=== PATIENT | female | born 1935 | race Caucasian/White ===

== ENCOUNTER → 2016-11-29 | Outpatient (CLI) | payer OTHER, MEDICARE ==
[~2016-11-29] MED LIST: ACETAMINOPHEN325 M1 PO; ADULT LOW DOSE81 MG PO; ADVIL200 M3 PO; ALDACTONE25 MG PO; AMLODIPINE BESY10 MG PO; ANTIVERT25 MG PO; ASPIRIN EC81 M1 PO; ATENOLOL 25 MG25 M1 PO; AZITHROMYCIN 2250 MG PO; AZOR 10-40 MG1 EACH PO; AZOR 5-40 MG T1 EACH PO; BACTRIM DS TAB1 EACH PO; BENTYL10 MG PO; BYSTOLIC 5 MG5 M1 PO; BYSTOLIC10 MG PO; CALCIUM; CALCIUM 600 +1 EAC1 PO; CALCIUM 600 +1 EAC5 PO; CHERACOL COUGH120 ML PO; CIPROFLOXACIN500 M1 PO; ESTRACE VAG; ESTRACE1 MG; EVISTA; FISHOIL PO; FLECAINIDE ACET50 M1 PO; FLECAINIDE ACET50 M2 PO; FLEXERIL PO; FOSAMAX 70 MG T70 M1 PO; GAVISCON TABLE1 EACH PO; HYDROCHLOROTHIA25 M1 PO; HYDROCHLOROTHIA25 M2 PO; HYDROCODON-ACE1 EAC7 PO; IRBESARTAN300 MG PO; KEFLEX250 MG PO; KLOR-CON 1010 MEQ PO; KRILL OIL500 MG PO; LISINOPRIL40 MG PO; MAG-OX 400 TAB400 M1 PO; METOCLOPRAMIDE 55 M1 PO; MUCINEX TA600 MG/TA2 PO; NAPROSYN500 MG PO; NORCO 5-325 TA1 EACH PO; NORVASC10 MG PO; POTASSIUM20 PO; PRADAXA150 MG PO; PREDNISONE 10 M10 M1 PO; PREDNISONE 20 M20 MG PO; PROAIR HFA8.5 GM IH; RANITIDINE 150150 MG PO; RECLAST 55 MG/1002 IVPB; SIMVASTATIN20 MG PO; SIMVASTATIN40 MG PO; SYMBICORT160 MCG/4. INH; TEKTURNA HCT 11 EACH PO; TESSALON PERLE100 MG PO; TOPROL XL50 MG PO; TRAMADOL 50 MG50 MG PO; TUMS PO; ULTRAM 50MG TAB50 MG PO; VAGIFEM10 MCG VG; VITAMIN D 5050000 I1 PO; VITAMINC500 PO; XANAX 0.25 MG0.25 MG PO; ZOCOR 20 MG TAB20 M1 PO; ZOCOR40 MG PO; ZOFRAN4 MG PO
== END ==
LOC: RAD 03:59
DX: Z12.31 Encounter for screening mammogram for malignant neoplasm of breast (principal)

== ENCOUNTER 2016-12-18 11:20 | Emergency (ER) | payer OTHER, MEDICARE ==
[~2016-12-18] VITALS: Ht 160 cm; Wt 81.7 kg
[2016-12-18 12:01] LABS: URINE BILIRUBIN NEGATIVE (Negative); URINE BLOOD 2+ (Negative); URINE COLOR YELLOW; URINE GLUCOSE-RANDOM* NEGATIVE (Negative); URINE KETONES NEGATIVE (Negative); URINE NITRITE NEGATIVE (Negative); URINE PROTEIN (DIPSTICK) NEGATIVE (Negative); URINE UROBILINOGEN 0.2 E.U./dl (0.2-1.0)
[2016-12-18 12:10] LABS: CASTS None Seen /LPF (None Seen); CRYSTALS None Seen /LPF (None Seen); SQUAMOUS >10 Many /LPF (0-3)
[2016-12-18 12:11] LABS: BACTERIA None Seen /HPF (None Seen); URINE RBC 3-10 Few /HPF (0-2); URINE WBC None Seen /HPF (0-5)
[2016-12-18 12:16] LABS: ABSOLUTE NEUTROPHILS 4.2 thou/uL (1.4-8.2); BASOPHILS 1.2 % (0.0-2.0); EOSINOPHILS 1.4 % (0.0-3.0); HEMATOCRIT 38.1 % (37.0-47.0); HEMOGLOBIN 13.6 gm/dL (12.0-15.0); LYMPHOCYTES 12.2 % (24.0-44.0); MCHC 35.8 g/dL (28.0-37.0); MCV 92.2 fL (80.0-100.0); MONOCYTES 11.3 % (1.0-8.0); PLATELET COUNT 214 thou/uL (150-400); POLYS 73.9 % (36.0-66.0); RBC 4.13 mil/uL (4.20-5.00); RDW 13.4 % (10.5-14.5); WBC 5.7 thou/uL (4.0-11.0)
[2016-12-18 12:20] LABS: MANUAL DIFF NO
[2016-12-18 12:28] LABS: CREATININE 0.7 mg/dL (0.6-1.0); POTASSIUM 3.6 mmol/L (3.5-5.1)
[2016-12-18 12:32] LABS: ALBUMIN 3.7 g/dL (3.4-5.0); DIRECT BILIRUBIN 0.2 mg/dL (<0.1-0.3); TOTAL BILIRUBIN 0.8 mg/dL (<0.1-1.0); TOTAL PROTEIN 6.8 g/dL (6.4-8.2)
[2016-12-18] MEDS ORDERED: BENTYL 10 MG CA10 M1 PO (14:08)
== END 2016-12-18 14:09 | disposition home or self-care (01) ==
LOC: ER 11:20
PROVIDERS: Emergency Medicine
DX: R14.0 Abdominal distension (gaseous) (principal); I48.91 Unspecified atrial fibrillation; K58.9 Irritable bowel syndrome, unspecified; Z90.710 Acquired absence of both cervix and uterus; Z95.0 Presence of cardiac pacemaker; Z88.5 Allergy status to narcotic agent; Z91.040 Latex allergy status; Z88.0 Allergy status to penicillin; Z87.891 Personal history of nicotine dependence

== ENCOUNTER 2017-11-28 22:01 | Emergency (ER) | payer OTHER, MEDICARE ==
[~2017-11-28] VITALS: Ht 157.5 cm; Wt 81.7 kg
[2017-11-28 23:38] LABS: ABSOLUTE NEUTROPHILS 8.9 thou/uL (1.4-8.2); BASOPHILS 0.3 % (0.0-2.0); EOSINOPHILS 0.6 % (0.0-3.0); HEMATOCRIT 39.4 % (37.0-47.0); HEMOGLOBIN 14.1 gm/dL (12.0-15.0); LYMPHOCYTES 6.2 % (24.0-44.0); MCH 32.8 pg (26.0-34.0); MCHC 35.7 g/dL (28.0-37.0); MONOCYTES 5.2 % (1.0-8.0); POLYS 87.7 % (36.0-66.0); RBC 4.29 mil/uL (4.20-5.00); RDW 13.4 % (10.5-14.5); WBC 11.2 thou/uL (4.0-11.0)
[2017-11-28 23:46] LABS: CALCIUM 9.6 mg/dL (8.5-10.1); CREATININE 0.7 mg/dL (0.6-1.0); POTASSIUM 3.5 mmol/L (3.5-5.1)
[2017-11-28 23:54] LABS: ALBUMIN 3.8 g/dL (3.4-5.0); DIRECT BILIRUBIN 0.2 mg/dL (<0.1-0.3); TOTAL BILIRUBIN 1.2 mg/dL (<0.1-1.0); TOTAL PROTEIN 7.3 g/dL (6.4-8.2)
[2017-11-29 00:15] LABS: PLATELET COUNT 239 thou/uL (150-400)
== END 2017-11-29 02:42 | disposition home or self-care (01) ==
LOC: ER 22:01
PROVIDERS: Emergency Medicine
DX: K31.1 Adult hypertrophic pyloric stenosis (principal); K44.9 Diaphragmatic hernia without obstruction or gangrene; R19.7 Diarrhea, unspecified; I48.91 Unspecified atrial fibrillation; Z90.710 Acquired absence of both cervix and uterus; Z88.5 Allergy status to narcotic agent; Z91.040 Latex allergy status; Z88.0 Allergy status to penicillin; Z87.891 Personal history of nicotine dependence

== ENCOUNTER → 2017-11-28 | Outpatient (CLI) | payer OTHER, MEDICARE ==
[~2017-11-28] MED LIST changes: +BENTYL 10 MG CA10 M1 PO
--- NOTE | ~2017-11-28 | PATH ---
[facility] [address] [place] [address] PATHOLOGY RPT PROCEDURE Name: ISELABORA SAWYER Room #: REG MERLYN Colunga.#: [id number] Admission: 11/28/17 Date of : 39 Discharge: Report #: [id number] Path Case #: [id number] LCA Accession Number: [id number] . 01 Material submitted: . PART A: BIOPSY, GASTRITIS PART B: BIOPSY, RANDOM COLON . 01 Clinical history: . GERD, history of polyps, severe esophagitis, hiatal hernia, diverticulosis. . 02 Diagnosis: A. Gastric mucosa, gastritis, endoscopic biopsy: - Mild reactive gastropathy. - Negative for intestinal metaplasia or atrophy. - Negative for Helicobacter pylori (properly controlled immunohistochemical stain performed). . B. Large intestine mucosa, random colon, endoscopic biopsy: - No significant diagnostic abnormalities identified. [facility] . 02 Comment: Sections of colon biopsy tissues show crypts at regular intervals and no increase in cellularity of lamina propria. There are no granulomas. The collagen layer underneath the epithelium is not thickened. There is no distortion in crypt architecture as well. There is no evidence of dysplasia. (IUV:pit; 11/29/2017) . 02 Electronically signed: . Dayana Locke MD, Pathologist NPI- [id number] . 01 Gross description: . A. Received in formalin labeled "Bora Weiss, biopsy gastritis rule out H. pylori" are multiple pink-berger soft tissue fragments which measure in aggregate 1.0 x 0.5 x 0.2 cm. The specimen is submitted in cassette A1. . B. Received in formalin labeled "Bora Weiss, biopsy random colon rule out colitis" is a 1.5 x 0.6 x 0.2 cm aggregate of berger-brown soft tissue fragments. The specimen is submitted in cassette B1. ([facility]; 11/28/2017) SY/[facility] . 02 CPT . [id number], [id number], [id number] [place] [address] PATHOLOGY RPT PROCEDURE Name: BORA WEISS Room #: REG Jenn Aquino#: [id number] Admission: 11/28/17 Date of : 37 Discharge: Report #: [id number] Path Case #: [id number] Performed at: 01 [facility] Judith Kovacs [address] [facility] [address], [place] [id number] MD Tomas Meng MD Phone: [phone] Performed at: [address] [id number] MD Dayana Locke MD Phone: [phone]
--- NOTE | ~2017-11-28 | P ---
[facility] [place] [address] PROCEDURE REPORT Name: BORA WEISS Room #: REG [facility]#: [id number] Admission: 11/28/17 Attend Phys: García Jacome MD Discharge: Date of : 37 Report #: [id number] THIS REPORT FOR: //name// CC: Sharda Jacome BRIEF HISTORY: The patient is an 82-year-old woman who has a history of reflux disease, which she has managed with an H2 ish. However, she notes that symptoms have been worsening recently, especially after the colonoscopy prep. PREOPERATIVE DIAGNOSIS: Worsening reflux symptoms on therapy. POSTOPERATIVE DIAGNOSES: 1. Severe erosive esophagitis with oozing of bright red blood. 2. Abnormal stomach, suspected large hiatus hernia. 3. Duodenal ulcers. MEDICATIONS: Deep sedation with propofol per Anesthesia. SPECIMEN: Biopsies of gastritis. ESTIMATED BLOOD LOSS: 3 mL. PROCEDURE: EGD with biopsy.. FINDINGS: Prior to propofol sedation, procedure of upper endoscopy was discussed with the patient as well as potential risks and its complications. She indicates she understands and desires to proceed. DESCRIPTION OF PROCEDURE: With the patient in left lateral decubitus position, the Olympus video endoscope was inserted in the cervical esophagus under direct vision. Immediately upon entering the esophagus, there was noted to be fluid in the esophagus. It had a brownish appearance, suggesting blood. We vigorously aspirated the esophagus and very carefully advanced the scope distally. The esophagus was noted to be a tortuous, in particular the distal esophagus. I could never clearly see the squamocolumnar junction, but is estimated to be at about 30 cm. I very carefully advanced the scope into the gastric lumen. There was bloody fluid and this was aspirated away. Vigorous bleeding was not seen. The distal aspect of the stomach was very difficult to visualize. I am suspicious she has a very large hiatus hernia. That being the case, she may have at least half of her stomach in her chest. We made multiple attempts to advance the scope in the distal stomach, but each time the scope curled around in the proximal stomach. We finally were able to advance the scope into the distal stomach. We were able to clearly see the antrum and the pylorus. The mucosa was intact. No ulcers were seen. Pylorus was normal. Exam of duodenal bulb revealed superficial ulceration in the distal bulb and second portion of [facility] [address] [place] [address] PROCEDURE REPORT Name: BORA WEISS [id number] Admission: 11/28/17 Attend Phys: García Jacome MD Discharge: Date of : 37 Report #: [id number] duodenum. Active bleeding was not seen. No masses were seen. At that point, the scope was slowly withdrawn and careful circumferential views confirmed the above finding. Biopsies obtained of the antrum and body of the stomach to evaluate for H. pylori. Upon slow withdrawal of the scope, we aspirated away as much fluid as possible. CONDITION OF THE PATIENT UPON DISCHARGE: Following procedure, the patient drowsy and she will be prepared for colonoscopy. INSTRUCTIONS TO THE PATIENT AND FAMILY AT THE TIME OF DISCHARGE: The patient reports that she has had recent worsening of her reflux symptoms. I am suspicious she has a very large hiatus hernia and my estimate at least half the stomach is in her chest. Another consideration would be a gastric volvulus and if that is the case, it is chronic without complaints of abdominal pain. We will obtain an upper GI series for further evaluation. I suspect she is likely to benefit from surgery. In the meantime, discussed the antireflux measures, elevation of the head of the bed, also placed her on twice-daily omeprazole. At this time, we will proceed with colonoscopy. By: 0847 0920 García Jacome MD /alysa
--- NOTE | ~2017-11-28 | P ---
[facility] [place] [address] PROCEDURE REPORT Name: BORA WEISS Room #: [facility] [id number] Admission: 11/28/17 Attend Phys: García Jacome MD Discharge: Date of : 37 Report #: [id number] THIS REPORT FOR: //name// CC: Sharda Jacome BRIEF HISTORY: This is an 82-year-old woman who has had a recent change in bowel habits. She also has a history of colon polyps. PREOPERATIVE DIAGNOSES: Change in bowel habits with diarrhea. POSTOPERATIVE DIAGNOSIS: Moderate sigmoid diverticulosis coli. MEDICATIONS: Deep sedation with propofol per anesthesia. SPECIMEN: Random biopsies of the colon, rule out colitis. ESTIMATED BLOOD LOSS: 3 mL. PROCEDURE: Colonoscopy to cecum and terminal ileum with biopsy. FINDINGS: Prior to propofol sedation, the procedure of colonoscopy was discussed with the patient as well as potential risks, benefits, and complications. She indicates she understands and desires to proceed. With the patient in left lateral decubitus position, digital examination was completed, which revealed no abnormalities. Subsequently, the Olympus video colonoscope was introduced in the rectum and advanced under direct vision to the cecum. Done with minimal difficulty. The cecum was identified by the ileocecal valve and the appendiceal orifice. I was able to visualize the distal segment of terminal ileum, which was inspected and noted to be unremarkable. At that point, scope was slowly withdrawn and careful circumferential views were obtained. There were some limitations of the prep, but with irrigation and suctioning, we are overall able to obtain a reasonably good prep. As we withdrew the scope, the mucosa was within normal limits, normal vascular pattern, normal light reflex. No neoplastic lesions were seen during this examination. The mucosa was within normal limits throughout. As we withdrew the scope, the only abnormality noted was moderately severe diverticular disease without endoscopic evidence of diverticulitis in the sigmoid colon. Also, due to her complaints of diarrhea, multiple random biopsies were obtained of the colonic mucosa to evaluate for microscopic colitis. The scope was withdrawn in the rectum. Upon retroflexion, no abnormalities were seen. Scope was withdrawn. The patient tolerated the procedure well. CONDITION OF THE PATIENT UPON DISCHARGE: Following procedure, the patient drowsy and arousable, she will be discharged to home when fully ambulatory. [address] [address] PROCEDURE REPORT Name: BORA WEISS [facility] #: [facility] [id number] Admission: 11/28/17 Attend Phys: García Jacome MD Discharge: Date of : 37 Report #: [id number] INSTRUCTIONS TO THE PATIENT AND FAMILY AT THE TIME OF DISCHARGE: With regards to her history of colon polyps, no neoplastic lesions were seen today. At this point in life, she is not likely to benefit from continued routine surveillance of her colon. However, if she develops specific symptoms, colonoscopy could be carried out for those indications. As for her diarrhea, we will follow up on biopsies obtained today. At this point in time, she reports that Kaopectate seems to help and that would be reasonable. She has had a previous cholecystectomy and treatment for bile salt diarrhea with may be a consideration, especially the Kaopectate does not work. She will follow up with her primary care provider, Sharda Campos, return to see me as needed. Please also see upper endoscopy report for additional details. Last colonoscopy was about 9 years ago. Withdrawal time from cecum was minutes 49 seconds. By: 0919 1008 García Jacome MD /nt
[2017-11-28 09:58] LABS: HEMATOCRIT 37.7 % (37.0-47.0); HEMOGLOBIN 13.5 gm/dL (12.0-15.0); MCH 33.4 pg (26.0-34.0); MCHC 35.7 g/dL (28.0-37.0); MCV 93.3 fL (80.0-100.0); RBC 4.04 mil/uL (4.20-5.00); RDW 13.5 % (10.5-14.5); WBC 7.8 thou/uL (4.0-11.0)
== END | disposition home or self-care (01) ==
LOC: GI 06:42
PROVIDERS: Specialist
DX: K57.30 Diverticulosis of large intestine without perforation or abscess without bleeding (principal); K31.9 Disease of stomach and duodenum, unspecified; K22.11 Ulcer of esophagus with bleeding; K22.8 Other specified diseases of esophagus; K26.9 Duodenal ulcer, unspecified as acute or chronic, without hemorrhage or perforation; I10 Essential (primary) hypertension; Z88.0 Allergy status to penicillin; Z86.010 Personal history of colon polyps; Z91.040 Latex allergy status; Z88.8 Allergy status to other drugs, medicaments and biological substances; Z79.899 Other long term (current) drug therapy; Z98.890 Other specified postprocedural states
CPT/HCPCS: 62110; 62900

== ENCOUNTER → 2018-01-21 | Outpatient (CLI) | payer OTHER, MEDICARE | LOC: RAD 12-03 03:19 | DX: Z12.31 Encounter for screening mammogram for malignant neoplasm of breast (principal); I48.0 Paroxysmal atrial fibrillation; I10 Essential (primary) hypertension; E78.5 Hyperlipidemia, unspecified; Z95.0 Presence of cardiac pacemaker ==

== ENCOUNTER → 2018-06-11 | Outpatient (CLI) | payer OTHER, MEDICARE | LOC: RAD 15:06 | DX: I51.7 Cardiomegaly (principal); K44.9 Diaphragmatic hernia without obstruction or gangrene; J90 Pleural effusion, not elsewhere classified; Z95.0 Presence of cardiac pacemaker ==

== ENCOUNTER 2018-06-15 13:35 | Inpatient (IN) | payer OTHER, MEDICARE ==
[~2018-06-15] VITALS: Ht 160 cm; Wt 86.2 kg
--- NOTE | ~2018-06-15 | EKG ---
[address] [place] [address] ELECTROCARDIOGRAM REPORT Name: BORA WEISS Room #: REG [facility] [id number] Admission: 06/15/18 Attend Phys: Discharge: Date of : 37 Report #: [id number] THIS REPORT FOR: //name// [facility] ED Test Date: 2018-06-15 Test Time: 13:55:53 Pat Name: BORA WEISS Department: Room: Gender: F Supervisor Brine: : 1935 Requested By: Balaji Vincent Order Number: [id number] MD: Measurements Intervals [place] Rate: 61 P: [place]: 107 QRS: -13 QRSD: 99 T: -18 QT: 443 QTc: 447 Interpretive Statements Atrial-paced rhythm Inferior infarct, age indeterminate Probable anterior infarct, age indeterminate Compared to ECG 06/14/2016 14:35:45 Myocardial infarct finding now present Left-axis deviation no longer present [email or web address] By: 1355 1355 Epiphany Epiphany, /EPI
[2018-06-15 13:37] VITALS: BP 114/53
--- NOTE | 2018-06-15 13:43 | NUR ---
PT. EXAMINED BY RAMEZ PATE
[2018-06-15 14:28] LABS: ABSOLUTE NEUTROPHILS 7.1 thou/uL (1.4-8.2); HEMATOCRIT 38.7 % (37.0-47.0); HEMOGLOBIN 13.7 gm/dL (12.0-15.0); LYMPHOCYTES 3.3 % (24.0-44.0); MCH 32.8 pg (26.0-34.0); MCHC 35.3 g/dL (28.0-37.0); MCV 92.9 fL (80.0-100.0); MONOCYTES 1.2 % (1.0-8.0); PLATELET COUNT 283 thou/uL (150-400); POLYS 92.5 % (36.0-66.0); RBC 4.17 mil/uL (4.20-5.00); RDW 14.7 % (10.5-14.5); WBC 7.7 thou/uL (4.0-11.0)
[2018-06-15 14:37] LABS: ANION GAP 8 mmol/L (7-16); BUN 11 mg/dL (7-18); CALCIUM 9.9 mg/dL (8.5-10.1); CHLORIDE 94 mmol/L (98-107); CO2 29 mmol/L (21-32); CREATININE 1.1 mg/dL (0.6-1.0); GLUCOSE 131 mg/dL (74-106); POTASSIUM 3.8 mmol/L (3.5-5.1); SODIUM 131 mmol/L (136-145)
[2018-06-15 14:46] LABS: ALBUMIN 3.4 g/dL (3.4-5.0); SGOT 16 U/L (15-37); SGPT 50 U/L (30-65); TOTAL PROTEIN 6.9 g/dL (6.4-8.2); TROPONIN-I <0.06 ng/mL (<0.06)
--- NOTE | 2018-06-15 14:57 | NUR ---
assumed care of pt. pt is in ct
--- NOTE | 2018-06-15 15:39 | NUR ---
ATTEMPT FOR 2ND CULTURE WITHOUT SUCESS. LAB CALLED
[2018-06-15 15:55] LABS: URINE CLARITY CLEAR; URINE COLOR YELLOW; URINE SPECIFIC GRAVITY <= 1.005 (1.005-1.035)
[2018-06-15 15:56] LABS: URINE BILIRUBIN NEGATIVE (Negative); URINE BLOOD 1+ (Negative); URINE GLUCOSE-RANDOM* NEGATIVE (Negative); URINE KETONES NEGATIVE (Negative); URINE LEUKOCYTES-REFLEX NEGATIVE (Negative); URINE NITRITE-REFLEX NEGATIVE (Negative); URINE PROTEIN (DIPSTICK) NEGATIVE (Negative); URINE UROBILINOGEN 0.2 E.U./dl (0.2-1.0)
[2018-06-15 16:00] LABS: SQUAMOUS 4-10 Moderate /LPF (0-3); URINE RBC 3-10 Few /HPF (0-2); URINE WBC-REFLEX 0-5 Rare /HPF (0-5)
[2018-06-15 16:01] LABS: CASTS None Seen /LPF (None Seen); CRYSTALS None Seen /LPF (None Seen)
[2018-06-15 17:29] VITALS: BP 118/60
[2018-06-15 18:03] VITALS: BP 114/64
[2018-06-15] MEDS ORDERED: ELIQUIS5 MG PO (18:38)
[2018-06-15 19:30] VITALS: BP 108/60
--- NOTE | 2018-06-15 22:22 | EKG ---
[address] [address] ELECTROCARDIOGRAM REPORT Name: BORA WEISS Room #: 360-P ADM IN M.R.#: [id number] Admission: 06/15/18 Attend Phys: Faraz Baires MD Discharge: Date of : 37 Report #: [id number] THIS REPORT FOR: //name// [facility] ED Test Date: 2018-06-15 Test Time: 13:55:53 Pat Name: BORA WEISS Department: Room: 360 Gender: F Senior Compliance Analyst: : 1935 Requested By: Balaji Vincent Order Number: [id number] MD: Tera Wilson Measurements Intervals [place] Rate: 61 P: [place]: 107 QRS: -13 QRSD: 99 T: -18 QT: 443 QTc: 447 Interpretive Statements Atrial-paced rhythm Compared to ECG 06/14/2016 14:35:45 Left-axis deviation no longer present Electronically Signed On 06-15-2018 22:22:42 RESTAURANT RECRUITER by Tera Wilson [email or web address] <ELECTRONICALLY SIGNED> By: Tera Wilson MD 06/15/182221 1355 1355 Tera Wilson MD /LENNY
--- NOTE | 2018-06-16 03:27 | NUR ---
ASSUMED PT CARE AROUND 1900. A&OX4. DENIES ANY PAIN. C/O MILD NAUSEA. ZOFRAN GIVEN. UP W/ ASSIST AND WALKER TO BTR. TOLERATED WELL. LAP SITES TO ABDOMEN C/D/I WITH DERMABOND. PT SLEPT MOST OF THE NIGHT. RESP EVEN AND UNLABORED. AT BEDSIDE DURING THE NIGHT. PROGRESSING TOWARD POC GOALS. WILL CONTINUE TO MONITOR FURTHER.
[2018-06-16 04:05] VITALS: BP 104/55
[2018-06-16 05:50] LABS: HEMATOCRIT 33.4 % (37.0-47.0); MCH 32.1 pg (26.0-34.0); MCHC 34.6 g/dL (28.0-37.0); MCV 92.6 fL (80.0-100.0); RBC 3.6 mil/uL (4.20-5.00); WBC 6.9 thou/uL (4.0-11.0)
[2018-06-16 05:52] LABS: HEMOGLOBIN 11.5 gm/dL (12.0-15.0)
[2018-06-16 06:05] LABS: ALBUMIN 2.6 g/dL (3.4-5.0); CALCIUM 8.2 mg/dL (8.5-10.1); CREATININE 0.7 mg/dL (0.6-1.0); POTASSIUM 3.5 mmol/L (3.5-5.1); TOTAL BILIRUBIN 0.8 mg/dL (<0.1-1.0); TOTAL PROTEIN 5.5 g/dL (6.4-8.2)
[2018-06-16 07:35] VITALS: BP 102/54
[2018-06-16 11:13] VITALS: BP 94/49
--- NOTE | 2018-06-16 11:29 | NUR ---
assessment: cm reviewed CHART AND MET WITH PATIENT AT THE BEDSIDE. PT IS ALERT AND ORIENTED X4. PT REPORTS LIVING AT HOME WITH SIGNIFICANT OTHER. PT REPORTS TWO STEPS TO ENTER THE HOME WITH NO HANDRAIL. PT REPORTS ONCE INSIDE SHE HAS NO STEPS SHE HAS TO USE. PT REPORTS THAT SHE AMBULATES INDEPENDENTLY AND ALSO WITH A CANE SHE JUST GOT RECENTLY AND IS INDEPENDENT WITH ADLS. PT REPORTS HAVING A GRAB BAR IN THE SHOWER. PT REPORTS SHE HAS NOT HAD HH IN THE PAST BUT FEELS SHE MAY BENEFIT FROM HH. CM DISCUSSED ROLE. [facility]. PT/OT EVALS PENDING. PT ALSO DOES NOT WEAR OXYGEN AT HOME. CM WILL CONTINUE TO FOLLOW TO ASSIST NEEDED.
[2018-06-16 14:28] VITALS: BP 94/49
[2018-06-16 15:38] VITALS: BP 130/74
--- NOTE | 2018-06-16 17:12 | NUR ---
Assumed care of Pt at 0700. Pt AOx4 in no acute distress. reports two bouts of "explosive" diarrhea today. cdif results negative. up w/ walker to SBA. seen by GI specialist - no new orders. will cont to monitor. pt progressing toward poc goals.
[2018-06-16 21:18] VITALS: BP 113/66
[2018-06-17 04:17] LABS: CALCIUM 8.1 mg/dL (8.5-10.1); CREATININE 0.6 mg/dL (0.6-1.0); MAGNESIUM 1.9 mg/dL (1.8-2.4); POTASSIUM 3.1 mmol/L (3.5-5.1)
[2018-06-17 04:27] LABS: HEMATOCRIT 31.6 % (37.0-47.0); HEMOGLOBIN 11.2 gm/dL (12.0-15.0); MCH 32.9 pg (26.0-34.0); MCHC 35.4 g/dL (28.0-37.0); MCV 93.1 fL (80.0-100.0); RBC 3.4 mil/uL (4.20-5.00); RDW 14.7 % (10.5-14.5); WBC 5.4 thou/uL (4.0-11.0)
[2018-06-17 04:49] LABS: FOLIC ACID 17.2 ng/mL (8.6-58.9)
[2018-06-17 05:45] VITALS: BP 114/60
--- NOTE | 2018-06-17 07:43 | NUR ---
Pt. expressed concern of being tired of frequently getting up to use bathroom due to loose bm at HS. OFFICE WORKER notified and order for immodium obtained which was given to pt. with some relief. She stated this am that she was able to sleep and loose bm has slowed down quite a bit, in fact she only had a very small one this am when she woke up. Denies any pain. Received on O2 at 1L/NC at beginning of shift then titrated off to RA wit O2 sat in the low to mid 90's. Bed alarm on , at bedside and pt. calls appropriately for help. Will continue to monitor.
[2018-06-17 08:16] VITALS: BP 109/55
[2018-06-17 11:56] VITALS: BP 118/63
[2018-06-17] MEDS ORDERED: LOPERAMIDE 2 MG2 M1 PO (12:21)
[2018-06-17] MEDS ORDERED: ZOFRAN 4 MG ORAL4 MG DISSOLVE (12:21)
--- NOTE | 2018-06-17 16:19 | NUR ---
ASSUMED PATIENT CARE AT 0700. A/0 X4. GENERLIZED WEAKNESS. UP TO BATHROOM WITH WALKER. TWO LOOSE STOOL. SLOWLY TOWARDS POC GOALS. DC TO HOME NOW.
--- NOTE | 2018-06-19 10:14 | HC ---
[facility] [place] [address] [address] CONSULTATION Name: BORA WEISS Room #: 360-P [facility] IN ..#: [id number] Admission: 06/15/18 Attend Phys: Faraz Baires MD Discharge: 06/17/18 Date of : 37 Report #: [id number] THIS REPORT FOR: //name// CC: Serge Cedillo DATE OF SERVICE: 06/17/2018 HISTORY OF PRESENT ILLNESS: An 82-year-old white woman admitted with intractable nausea, vomiting and diarrhea and recent history of Levaquin treatment for gastrointestinal surgery. The patient on the day she is evaluated that is yesterday was feeling better, still having some diarrhea. She was advised a CAT scan, revealed significant amount of stool in large bowel and repeat KUB was ordered. PAST MEDICAL HISTORY: ALLERGIC TO LATEX, MORPHINE, PENICILLIN. History of hiatal hernia repair in 05/2018 at [facility]. Mild lactic acidosis Hypokalemia. History of irritable bowel syndrome. SOCIAL HISTORY: See H and P. FAMILY HISTORY: See H and P, old records. REVIEW OF SYSTEMS: The patient improved, only complaining of some diarrhea. PHYSICAL EXAMINATION: GENERAL: Well-developed, nontoxic looking woman, in no distress. VITAL SIGNS: As follows: Temperature 98.2, pulse 63, respirations 17, BP 109/55. Height 5 feet 3 inches, weight 190 pounds. HEENMT: Within range. NECK: Supple. LUNGS: Clear. BREASTS: Deferred. HEART: S1, S2. No gallop or murmur. ABDOMEN: Soft, with surgical wound with recent laparoscopic hiatal hernia repair. No masses or megaly. EXTREMITIES: No pretibial edema, stasis dermatitis. LABORATORY DATA: C. difficile toxin assay negative. Hypokalemia of 3.1 noted. Mild hyperglycemia, hypoalbuminemia 2.6 g/dL. Lactic acid elevated on admission, this resolved. WBC 5.4, hemoglobin 11.2, platelets 216,000. RADIOLOGY EVALUATION: CT abdomen and pelvis revealed left basilar atelectases, recent hiatal hernia surgical repair status post, strangling around stomach. Constipation. Sigmoid diverticulosis. No evidence of diverticulitis. [facility] [address] [place] [address] CONSULTATION Name: BORA WEISS Room #: 360-[facility] IN .R.#: [id number] Admission: 06/15/18 Attend Phys: Faraz Baires MD Discharge: 06/17/18 Date of : 37 Report #: [id number] ASSESSMENT: 1. Nausea, vomiting, question etiology, improved resolved diarrhea with negative C. difficile toxin assay. Lactic acidosis, resolved. 2. Status post recent surgery for reflux. Left basilar atelectasis. 3. Atrial fibrillation. SUGGESTIONS: Recommend continue on no antibiotics. Repeat KUB. The patient could be discharged per hospitalist. Dr. Zuñiga, thank you for requesting my suggestions. <ELECTRONICALLY SIGNED> By: Rm Wilson MD 06/19/18 1014 [id number] 1251 Rm Wilson MD /nt
== END 2018-06-17 16:46 | disposition home health service (06) | DRG 391 ==
LOC: ER 13:35 → EROBS 16:39 → 3W 16:39
PROVIDERS: Internal Medicine; Nurse Practitioner Family; Physician Assistant; ADMIT Family Medicine
DX: A08.4 Viral intestinal infection, unspecified (principal); E43 Unspecified severe protein-calorie malnutrition; E87.2 Acidosis; J98.11 Atelectasis; E86.0 Dehydration; I48.2 Chronic atrial fibrillation; K58.9 Irritable bowel syndrome, unspecified; F41.9 Anxiety disorder, unspecified; R41.81 Age-related cognitive decline; F32.9 Major depressive disorder, single episode, unspecified; I48.91 Unspecified atrial fibrillation; Z68.33 Body mass index [BMI] 33.0-33.9, adult; Z87.11 Personal history of peptic ulcer disease; Z87.01 Personal history of pneumonia (recurrent); Z87.891 Personal history of nicotine dependence; Z95.0 Presence of cardiac pacemaker; Z90.710 Acquired absence of both cervix and uterus; Z90.49 Acquired absence of other specified parts of digestive tract; Z79.01 Long term (current) use of anticoagulants; Z79.899 Other long term (current) drug therapy; Z88.5 Allergy status to narcotic agent; Z88.0 Allergy status to penicillin; Z88.8 Allergy status to other drugs, medicaments and biological substances; Z91.040 Latex allergy status
CPT/HCPCS: 10879

== ENCOUNTER → 2018-06-24 | Outpatient (CLI) | payer OTHER, MEDICARE ==
[~2018-06-24] MED LIST changes: +ELIQUIS5 MG PO; +LOPERAMIDE 2 MG2 M1 PO; +ZOFRAN 4 MG ORAL4 MG DISSOLVE
== END ==
LOC: RAD 11:04
DX: J90 Pleural effusion, not elsewhere classified (principal); J18.9 Pneumonia, unspecified organism

== ENCOUNTER → 2018-06-26 | Outpatient (CLI) | payer OTHER, MEDICARE ==
[2018-06-26 10:35] LABS: CREATININE 0.9 mg/dL (0.6-1.0)
== END ==
LOC: CAT 09:46
PROVIDERS: Nurse Practitioner
DX: J90 Pleural effusion, not elsewhere classified (principal); K44.9 Diaphragmatic hernia without obstruction or gangrene; J98.11 Atelectasis; I25.10 Atherosclerotic heart disease of native coronary artery without angina pectoris; Z85.3 Personal history of malignant neoplasm of breast

== ENCOUNTER 2018-08-02 08:48 | Emergency (ER) | payer OTHER, MEDICARE ==
[~2018-08-02] VITALS: Ht 160 cm; Wt 86.2 kg
[2018-08-02] MEDS ORDERED: MACROBID 100 M100 M2 PO (09:14)
[2018-08-02 09:27] LABS: ABSOLUTE NEUTROPHILS 8.4 thou/uL (1.4-8.2); BASOPHILS 0.6 % (0.0-2.0); EOSINOPHILS 0.4 % (0.0-3.0); HEMATOCRIT 42.1 % (37.0-47.0); MCHC 35.5 g/dL (28.0-37.0); MCV 93.1 fL (80.0-100.0); MONOCYTES 3.3 % (1.0-8.0); PLATELET COUNT 199 thou/uL (150-400); POLYS 94.7 % (36.0-66.0); RBC 4.53 mil/uL (4.20-5.00); RDW 14.4 % (10.5-14.5); WBC 8.9 thou/uL (4.0-11.0)
[2018-08-02 09:38] LABS: URINE BILIRUBIN NEGATIVE (Negative); URINE BLOOD 3+ (Negative); URINE CLARITY CLEAR; URINE COLOR YELLOW; URINE GLUCOSE-RANDOM* NEGATIVE (Negative); URINE KETONES NEGATIVE (Negative); URINE LEUKOCYTES-REFLEX NEGATIVE (Negative); URINE NITRITE-REFLEX NEGATIVE (Negative); URINE PROTEIN (DIPSTICK) TRACE (Negative); URINE SPECIFIC GRAVITY >= 1.030 (1.005-1.035); URINE UROBILINOGEN 0.2 E.U./dl (0.2-1.0)
[2018-08-02 09:53] LABS: BACTERIA-REFLEX 1-9 Few /HPF (None Seen); CASTS None Seen /LPF (None Seen); CRYSTALS None Seen /LPF (None Seen); SQUAMOUS 0-3 Few /LPF (0-3); URINE RBC 3-10 Few /HPF (0-2); URINE WBC-REFLEX 0-5 Rare /HPF (0-5)
[2018-08-02 10:01] LABS: ANION GAP 8 mmol/L (7-16); BUN 14 mg/dL (7-18); CALCIUM 10.2 mg/dL (8.5-10.1); CHLORIDE 95 mmol/L (98-107); CO2 28 mmol/L (21-32); CREATININE 0.9 mg/dL (0.6-1.0); GLUCOSE 153 mg/dL (74-106); POTASSIUM 3.9 mmol/L (3.5-5.1); SODIUM 131 mmol/L (136-145)
[2018-08-02 10:10] LABS: ALBUMIN 3.9 g/dL (3.4-5.0); LIPASE 41 U/L (73-393); SGOT 33 U/L (15-37); SGPT 40 U/L (30-65); TOTAL BILIRUBIN 1.1 mg/dL (<0.1-1.0); TOTAL PROTEIN 7.6 g/dL (6.4-8.2); TROPONIN-I <0.06 ng/mL (<0.06)
[2018-08-02] MEDS ORDERED: ZOFRAN ODT4 MG DISSOLVE (10:35)
[2018-08-02 11:04] VITALS: BP 126/62
--- NOTE | 2018-08-03 21:59 | EKG ---
[address] [address] ELECTROCARDIOGRAM REPORT Name: BORA WEISS [facility] #: [facility] [id number] Admission: 08/02/18 Attend Phys: Discharge: 08/02/18 Date of : 37 Report #: [id number] THIS REPORT FOR: //name// [facility] ED Test Date: 2018-08-02 Test Time: 09:26:26 Pat Name: BORA ISELA Department: Room: Gender: F Chief Warden: [facility] 1935 Requested By: Zac Dunn Order Number: [id number] MD: Tera Wilson Measurements Intervals [place] Rate: 71 P: 35 [place]: 190 QRS: -9 QRSD: 99 T: -9 QT: 397 QTc: 432 Interpretive Statements Sinus rhythm Inferior infarct, old Baseline wander in lead(s) V6 Compared to ECG 06/15/2018 13:55:53 Myocardial infarct finding now present Atrial-paced complex(es) or rhythm no longer present Ventricular-paced complex(es) or rhythm no longer present Electronically Signed On 08-03-2018 21:59:17 TUBE MILL OPERATOR by Tera Wilson [email or web address] <ELECTRONICALLY SIGNED> By: Tera Wilson MD 08/03/18 2159 5 5 Tera Wilson MD /EPI
== END 2018-08-02 11:05 | disposition home or self-care (01) ==
LOC: ER 08:48
PROVIDERS: Emergency Medicine
DX: J98.11 Atelectasis (principal); R11.2 Nausea with vomiting, unspecified; K59.00 Constipation, unspecified; I48.91 Unspecified atrial fibrillation; M54.30 Sciatica, unspecified side; Z95.0 Presence of cardiac pacemaker; Z90.49 Acquired absence of other specified parts of digestive tract; Z90.710 Acquired absence of both cervix and uterus; Z90.10 Acquired absence of unspecified breast and nipple; Z87.891 Personal history of nicotine dependence; Z88.0 Allergy status to penicillin; Z88.5 Allergy status to narcotic agent; Z91.040 Latex allergy status

== ENCOUNTER → 2018-09-12 | Outpatient (CLI) | payer OTHER, MEDICARE ==
[~2018-09-12] MED LIST changes: +MACROBID 100 M100 M2 PO; +ZOFRAN ODT4 MG DISSOLVE
[2018-09-12 12:41] LABS: CREATININE 0.8 mg/dL (0.6-1.0)
== END ==
LOC: LAB 11:49
PROVIDERS: Nurse Practitioner
DX: K57.30 Diverticulosis of large intestine without perforation or abscess without bleeding (principal); J98.11 Atelectasis; M47.816 Spondylosis without myelopathy or radiculopathy, lumbar region; M12.88 Other specific arthropathies, not elsewhere classified, other specified site; M43.16 Spondylolisthesis, lumbar region; Z90.49 Acquired absence of other specified parts of digestive tract; Z90.710 Acquired absence of both cervix and uterus; Z95.0 Presence of cardiac pacemaker

== ENCOUNTER 2019-01-25 11:30 | Emergency (ER) | payer OTHER, MEDICARE ==
[~2019-01-25] VITALS: Ht 160 cm; Wt 86.2 kg
[2019-01-25] MEDS ORDERED: COLESTID1 GM PO (12:21)
[2019-01-25 14:02] LABS: ANION GAP 7 mmol/L (7-16); BUN 11 mg/dL (7-18); CALCIUM 9.2 mg/dL (8.5-10.1); CHLORIDE 95 mmol/L (98-107); CO2 25 mmol/L (21-32); CREATININE 0.8 mg/dL (0.6-1.0); GLUCOSE 100 mg/dL (74-106); POTASSIUM 3.9 mmol/L (3.5-5.1); SODIUM 127 mmol/L (136-145)
[2019-01-25 14:04] LABS: URINE BILIRUBIN NEGATIVE (Negative); URINE BLOOD 2+ (Negative); URINE CLARITY CLEAR; URINE COLOR YELLOW; URINE GLUCOSE-RANDOM* NEGATIVE (Negative); URINE KETONES NEGATIVE (Negative); URINE LEUKOCYTES-REFLEX NEGATIVE (Negative); URINE NITRITE-REFLEX NEGATIVE (Negative); URINE PROTEIN (DIPSTICK) NEGATIVE (Negative); URINE UROBILINOGEN 0.2 E.U./dl (0.2-1.0)
[2019-01-25 14:05] LABS: ABSOLUTE NEUTROPHILS 8.4 thou/uL (1.4-8.2); BASOPHILS 0.6 % (0.0-2.0); EOSINOPHILS 0.7 % (0.0-3.0); HEMATOCRIT 36.7 % (37.0-47.0); HEMOGLOBIN 12.8 gm/dL (12.0-15.0); LYMPHOCYTES 2.9 % (24.0-44.0); MCHC 34.8 g/dL (28.0-37.0); MCV 94.7 fL (80.0-100.0); MONOCYTES 6.4 % (1.0-8.0); PLATELET COUNT 179 thou/uL (150-400); POLYS 89.4 % (36.0-66.0); RBC 3.88 mil/uL (4.20-5.00); RDW 13.7 % (10.5-14.5); WBC 9.4 thou/uL (4.0-11.0)
[2019-01-25 14:09] LABS: SQUAMOUS >10 Many /LPF (0-3)
[2019-01-25 14:10] LABS: BACTERIA-REFLEX None Seen /HPF (None Seen); CASTS None Seen /LPF (None Seen); CRYSTALS None Seen /LPF (None Seen); URINE RBC 0-2 Rare /HPF (0-2); URINE WBC-REFLEX 0-5 Rare /HPF (0-5)
[2019-01-25 14:12] LABS: ALBUMIN 3.4 g/dL (3.4-5.0); MAGNESIUM 1.8 mg/dL (1.8-2.4); SGOT 21 U/L (15-37); SGPT 25 U/L (30-65); TOTAL BILIRUBIN 0.9 mg/dL (<0.1-1.0); TOTAL PROTEIN 6.6 g/dL (6.4-8.2); TROPONIN-I <0.06 ng/mL (<0.06)
[2019-01-25 15:23] VITALS: BP 112/50
--- NOTE | 2019-01-26 08:08 | EKG ---
[place] [address] [facility] [place] [address] ELECTROCARDIOGRAM REPORT Name: BORA WEISS [facility]: [facility] [id number] Admission: 01/25/19 Attend Phys: Discharge: 01/25/19 Date of : 37 Report #: [id number] THIS REPORT FOR: //name// [facility] ED Test Date: 2019-01-25 Test Time: 11:39:07 Pat Name: BORA ISELA Department: Room: Gender: F Web Applications Developer: STACIE : 1935 Requested By: Shira Mcbride Order Number: [id number] MD: Anuj Bahena Measurements Intervals [place] Rate: 60 P: -29 [place]: 145 QRS: -22 QRSD: 101 T: -23 QT: 413 QTc: 413 Interpretive Statements Atrial-paced complexes Inferior infarct, old Poor R wave progression Nonspecific T wave abnormality Compared to ECG 08/02/2018 09:26:26 Atrial pacing is now present Electronically Signed On 01-26-2019 8:08:04 CDT by Anuj Bahena [email or web address] <ELECTRONICALLY SIGNED> By: Anuj Bahena MD, [facility] 01/26/19 0808 1139 1139 Anuj Bahena MD, [facility] /EPI
== END 2019-01-25 15:10 | disposition home or self-care (01) ==
LOC: ER 11:30
PROVIDERS: Physician Assistant
DX: E87.1 Hypo-osmolality and hyponatremia (principal); R19.7 Diarrhea, unspecified; R42 Dizziness and giddiness; I48.91 Unspecified atrial fibrillation; K58.9 Irritable bowel syndrome, unspecified; Z95.0 Presence of cardiac pacemaker; Z90.710 Acquired absence of both cervix and uterus; Z90.10 Acquired absence of unspecified breast and nipple; Z90.49 Acquired absence of other specified parts of digestive tract; Z87.891 Personal history of nicotine dependence; Z88.0 Allergy status to penicillin; Z88.6 Allergy status to analgesic agent; Z88.8 Allergy status to other drugs, medicaments and biological substances; Z91.040 Latex allergy status

== ENCOUNTER → 2019-02-17 | Outpatient (CLI) | payer OTHER, MEDICARE ==
[~2019-02-17] MED LIST changes: +COLESTID1 GM PO
== END ==
LOC: RAD 01:30
DX: Z12.31 Encounter for screening mammogram for malignant neoplasm of breast (principal)

== ENCOUNTER 2019-05-10 13:05 | Emergency (ER) | payer OTHER, MEDICARE ==
[~2019-05-10] VITALS: Ht 160 cm; Wt 86.2 kg
[2019-05-10 14:42] LABS: ABSOLUTE NEUTROPHILS 7.2 thou/uL (1.4-8.2); BASOPHILS 0.8 % (0.0-2.0); EOSINOPHILS 0.6 % (0.0-3.0); HEMATOCRIT 40.2 % (37.0-47.0); HEMOGLOBIN 13.8 gm/dL (12.0-15.0); LYMPHOCYTES 6.5 % (24.0-44.0); MCH 32.4 pg (26.0-34.0); MCHC 34.4 g/dL (28.0-37.0); MCV 94.3 fL (80.0-100.0); MONOCYTES 4.7 % (1.0-8.0); PLATELET COUNT 207 thou/uL (150-400); POLYS 87.4 % (36.0-66.0); RBC 4.26 mil/uL (4.20-5.00); RDW 13.6 % (10.5-14.5); WBC 8.2 thou/uL (4.0-11.0)
[2019-05-10 14:50] LABS: CALCIUM 9.8 mg/dL (8.5-10.1); CREATININE 0.8 mg/dL (0.6-1.0); POTASSIUM 3.7 mmol/L (3.5-5.1)
[2019-05-10 14:56] LABS: ALBUMIN 3.8 g/dL (3.4-5.0); TOTAL BILIRUBIN 0.9 mg/dL (<0.1-1.0); TOTAL PROTEIN 6.9 g/dL (6.4-8.2)
[2019-05-10 14:57] LABS: URINE BILIRUBIN NEGATIVE (Negative); URINE BLOOD 2+ (Negative); URINE CLARITY CLEAR; URINE COLOR YELLOW; URINE GLUCOSE-RANDOM* NEGATIVE (Negative); URINE KETONES NEGATIVE (Negative); URINE NITRITE-REFLEX NEGATIVE (Negative); URINE PROTEIN (DIPSTICK) NEGATIVE (Negative); URINE SPECIFIC GRAVITY <= 1.005 (1.005-1.035); URINE UROBILINOGEN 0.2 E.U./dl (0.2-1.0)
[2019-05-10 14:58] LABS: URINE LEUKOCYTES-REFLEX 2+ (Negative)
[2019-05-10 15:05] LABS: SQUAMOUS >10 Many /LPF (0-3)
[2019-05-10 15:06] LABS: BACTERIA-REFLEX 1-9 Few /HPF (None Seen); CASTS None Seen /LPF (None Seen); URINE RBC 3-10 Few /HPF (0-2); URINE WBC-REFLEX 6-15 Few /HPF (0-5)
[2019-05-10 15:07] LABS: CRYSTALS None Seen /LPF (None Seen); RENAL EPITHELIAL CELLS 0-3 Few /LPF (None Seen)
[2019-05-10] MEDS ORDERED: KEFLEX500 M1 PO (15:48)
[2019-05-10 16:12] VITALS: BP 136/72
== END 2019-05-10 16:14 | disposition home or self-care (01) ==
LOC: ER 13:05
PROVIDERS: Nurse Practitioner Family
DX: R19.7 Diarrhea, unspecified (principal); I48.91 Unspecified atrial fibrillation; K58.9 Irritable bowel syndrome, unspecified; Z90.10 Acquired absence of unspecified breast and nipple; Z90.710 Acquired absence of both cervix and uterus; Z95.0 Presence of cardiac pacemaker; Z87.891 Personal history of nicotine dependence; Z91.040 Latex allergy status; Z88.0 Allergy status to penicillin; Z88.6 Allergy status to analgesic agent

== ENCOUNTER 2019-05-23 08:29 | Emergency (ER) | payer OTHER, MEDICARE ==
[~2019-05-23] VITALS: Ht 160 cm; Wt 86.2 kg
[~2019-05-23 08:29] MED LIST changes: +KEFLEX500 M1 PO
[2019-05-23 09:04] LABS: URINE BILIRUBIN NEGATIVE (Negative); URINE BLOOD 2+ (Negative); URINE CLARITY CLEAR; URINE COLOR YELLOW; URINE GLUCOSE-RANDOM* TRACE (Negative); URINE KETONES TRACE (Negative); URINE PROTEIN (DIPSTICK) 1+ (Negative)
[2019-05-23 09:06] LABS: URINE LEUKOCYTES-REFLEX 1+ (Negative); URINE NITRITE-REFLEX POSITIVE (Negative)
[2019-05-23 09:15] LABS: BACTERIA-REFLEX 1-9 Few /HPF (None Seen); CASTS None Seen /LPF (None Seen); CRYSTALS None Seen /LPF (None Seen); SQUAMOUS 0-3 Few /LPF (0-3); URINE RBC None Seen /HPF (0-2); URINE WBC-REFLEX 0-5 Rare /HPF (0-5)
[2019-05-23 09:57] LABS: ABSOLUTE NEUTROPHILS 5.2 thou/uL (1.4-8.2); BASOPHILS 0.9 % (0.0-2.0); EOSINOPHILS 0.8 % (0.0-3.0); HEMATOCRIT 40.8 % (37.0-47.0); HEMOGLOBIN 14.2 gm/dL (12.0-15.0); LYMPHOCYTES 7.5 % (24.0-44.0); MCH 32.7 pg (26.0-34.0); MCHC 34.8 g/dL (28.0-37.0); MCV 93.8 fL (80.0-100.0); MONOCYTES 6.1 % (1.0-8.0); PLATELET COUNT 190 thou/uL (150-400); POLYS 84.7 % (36.0-66.0); RBC 4.34 mil/uL (4.20-5.00); RDW 13.7 % (10.5-14.5); WBC 6.2 thou/uL (4.0-11.0)
[2019-05-23 10:02] LABS: CALCIUM 10.1 mg/dL (8.5-10.1); CREATININE 0.7 mg/dL (0.6-1.0); POTASSIUM 4.1 mmol/L (3.5-5.1)
[2019-05-23 11:25] VITALS: BP 110/71
[2019-05-23] MEDS ORDERED: PYRIDIUM200 MG PO (11:28)
[2019-05-23] MEDS ORDERED: KEFLEX500 M1 PO (11:28)
== END 2019-05-23 11:25 | disposition home or self-care (01) ==
LOC: ER 08:29
PROVIDERS: Emergency Medicine
DX: N39.0 Urinary tract infection, site not specified (principal); Z87.891 Personal history of nicotine dependence; Z91.040 Latex allergy status; Z88.5 Allergy status to narcotic agent; Z88.0 Allergy status to penicillin; Z79.899 Other long term (current) drug therapy; Z90.710 Acquired absence of both cervix and uterus; Z98.890 Other specified postprocedural states; Z95.0 Presence of cardiac pacemaker

== ENCOUNTER 2019-11-17 13:05 | Emergency (ER) | payer OTHER, MEDICARE ==
[~2019-11-17] VITALS: Ht 160 cm; Wt 81.7 kg
[~2019-11-17 13:05] MED LIST changes: +PYRIDIUM200 MG PO
[2019-11-17] MEDS ORDERED: FLOMAX0.4 MG PO (13:37)
[2019-11-17] MEDS ORDERED: ZOCOR20 MG PO (13:38)
[2019-11-17 13:39] LABS: ABSOLUTE NEUTROPHILS 4.4 thou/uL (1.4-8.2); BASOPHILS 0.9 % (0.0-2.0); EOSINOPHILS 2.1 % (0.0-3.0); HEMATOCRIT 39.6 % (37.0-47.0); HEMOGLOBIN 13.7 gm/dL (12.0-15.0); LYMPHOCYTES 14.3 % (24.0-44.0); MCH 32.9 pg (26.0-34.0); MCHC 34.6 g/dL (28.0-37.0); MONOCYTES 6.3 % (1.0-8.0); PLATELET COUNT 212 thou/uL (150-400); POLYS 76.4 % (36.0-66.0); RBC 4.17 mil/uL (4.20-5.00); RDW 14.1 % (10.5-14.5); WBC 5.8 thou/uL (4.0-11.0)
[2019-11-17] MEDS ORDERED: PROBIOTIC1 EAC7 PO (13:39)
[2019-11-17 13:50] LABS: CALCIUM 8.8 mg/dL (8.5-10.1); CREATININE 0.9 mg/dL (0.6-1.0); POTASSIUM 3.4 mmol/L (3.5-5.1)
[2019-11-17 13:57] LABS: ALBUMIN 3.7 g/dL (3.4-5.0); TOTAL BILIRUBIN 0.8 mg/dL (0.2-1.0)
[2019-11-17 14:42] VITALS: BP 134/67
== END 2019-11-17 14:44 | disposition home or self-care (01) ==
LOC: ER 13:05
PROVIDERS: Emergency Medicine
DX: T44.6X1A Poisoning by alpha-adrenoreceptor antagonists, accidental (unintentional), initial encounter (principal); I48.91 Unspecified atrial fibrillation; Z87.891 Personal history of nicotine dependence; Z91.040 Latex allergy status; Z88.5 Allergy status to narcotic agent; Z88.0 Allergy status to penicillin; Z79.899 Other long term (current) drug therapy; Z90.710 Acquired absence of both cervix and uterus; Z95.0 Presence of cardiac pacemaker; Y92.89 Other specified places as the place of occurrence of the external cause

== ENCOUNTER → 2019-12-08 | Outpatient (CLI) | payer OTHER, MEDICARE ==
[~2019-12-08] MED LIST changes: +FLOMAX0.4 MG PO; +PROBIOTIC1 EAC7 PO; +ZOCOR20 MG PO
== END ==
LOC: SJCVC 14:24
PROVIDERS: ATTEND Internal Medicine Cardiovascular Disease
DX: Z45.018 Encounter for adjustment and management of other part of cardiac pacemaker (principal); I48.0 Paroxysmal atrial fibrillation; I10 Essential (primary) hypertension; E78.00 Pure hypercholesterolemia, unspecified; I49.5 Sick sinus syndrome; M81.0 Age-related osteoporosis without current pathological fracture

== ENCOUNTER → 2020-02-12 | Outpatient (CLI) | payer OTHER, MEDICARE | LOC: CAT 13:19 | PROVIDERS: ATTEND Nurse Practitioner | DX: K57.30 Diverticulosis of large intestine without perforation or abscess without bleeding (principal); N28.1 Cyst of kidney, acquired; M47.815 Spondylosis without myelopathy or radiculopathy, thoracolumbar region; M47.816 Spondylosis without myelopathy or radiculopathy, lumbar region; M43.16 Spondylolisthesis, lumbar region; Z87.19 Personal history of other diseases of the digestive system; Z90.49 Acquired absence of other specified parts of digestive tract; Z90.710 Acquired absence of both cervix and uterus ==

== ENCOUNTER → 2020-02-23 | Outpatient (CLI) | payer OTHER, MEDICARE | LOC: BC 08:26 | PROVIDERS: ATTEND Nurse Practitioner | DX: Z12.31 Encounter for screening mammogram for malignant neoplasm of breast (principal) ==

== ENCOUNTER 2020-03-25 06:22 | Emergency (ER) | payer OTHER, MEDICARE ==
[~2020-03-25] VITALS: Ht 160 cm; Wt 88.5 kg
[2020-03-25 07:14] LABS: HEMATOCRIT 38.9 % (37.0-47.0); HEMOGLOBIN 13.4 gm/dL (12.0-15.0); MCH 32.9 pg (26.0-34.0); MCHC 34.4 g/dL (28.0-37.0); MCV 95.7 fL (80.0-100.0); RBC 4.07 mil/uL (4.20-5.00); RDW 14.4 % (10.5-14.5); WBC 5.1 thou/uL (4.0-11.0)
[2020-03-25 07:16] LABS: ANION GAP 10 mmol/L (7-16); BUN 12 mg/dL (7-18); CALCIUM 9.2 mg/dL (8.5-10.1); CHLORIDE 98 mmol/L (98-107); CO2 26 mmol/L (21-32); CREATININE 0.6 mg/dL (0.6-1.0); GLUCOSE 114 mg/dL (74-106); POTASSIUM 3.3 mmol/L (3.5-5.1); SODIUM 134 mmol/L (136-145)
[2020-03-25 07:26] LABS: TROPONIN-I <0.06 ng/mL (<0.06)
--- NOTE | 2020-03-25 07:40 | EKG ---
[facility] [place] [address] [place] [address] ELECTROCARDIOGRAM REPORT Name: BORA WEISS Room #: REG [facility].#: [id number] Admission: 03/25/20 Attend Phys: Discharge: Date of : 37 Report #: [id number] THIS REPORT FOR: cc: Sharda Campos Beth RNP Lundgren, Craig H. MD [facility] THIS REPORT FOR: //name// [facility] ED Test Date: 2020-03-25 Test Time: 06:34:10 Pat Name: BORA WEISS Department: Room: Gender: Heating And Ventilating Drafter: [facility] : 1935 Requested By: Evin Thompson Order Number: [id number] MD: Anuj Bahena Measurements Intervals [place] Rate: 61 P: CT: 113 QRS: -23 QRSD: 107 T: -13 QT: 423 QTc: 426 Interpretive Statements Atrial-paced rhythm Inferior infarct, age indeterminate Poor R wave progression Nonspecific T wave abnormality Compared to ECG 01/25/2019 11:39:07 No significant change was found Electronically Signed On 03-25-2020 7:40:32 CDT by Anuj Bahena [email or web address] <ELECTRONICALLY SIGNED> By: Anuj Bahena MD, [facility] 03/25/20 0740 0634 Anuj Bahena MD, [facility] /EPI
[2020-03-25 07:49] LABS: APTT 34.9 Seconds (24.5-32.8); PROTIME 10.2 Seconds (9.3-11.4)
[2020-03-25] MEDS ORDERED: MECLIZINE HCL25 M1 PO (08:34)
[2020-03-25 09:33] VITALS: BP 131/67
== END 2020-03-25 09:33 | disposition home or self-care (01) ==
LOC: ER 06:22
PROVIDERS: Emergency Medicine
DX: R42 Dizziness and giddiness (principal); I48.91 Unspecified atrial fibrillation; Z95.0 Presence of cardiac pacemaker; Z90.710 Acquired absence of both cervix and uterus; Z79.899 Other long term (current) drug therapy; Z88.0 Allergy status to penicillin; Z88.5 Allergy status to narcotic agent; Z91.040 Latex allergy status; Z87.891 Personal history of nicotine dependence; Z88.8 Allergy status to other drugs, medicaments and biological substances

== ENCOUNTER → 2020-05-18 | Outpatient (CLI) | payer OTHER, MEDICARE ==
[~2020-05-18] MED LIST changes: +MECLIZINE HCL25 M1 PO
== END ==
LOC: LAB 13:34
PROVIDERS: ATTEND Nurse Practitioner
DX: Z20.828 Contact with and (suspected) exposure to other viral communicable diseases (principal)

== ENCOUNTER → 2020-10-12 | Outpatient (CLI) | payer OTHER, MEDICARE | LOC: SJCVC 13:33 | PROVIDERS: ATTEND Internal Medicine Cardiovascular Disease | DX: I48.91 Unspecified atrial fibrillation (principal); I49.5 Sick sinus syndrome; E78.00 Pure hypercholesterolemia, unspecified; I10 Essential (primary) hypertension; D68.59 Other primary thrombophilia; R42 Dizziness and giddiness; M81.0 Age-related osteoporosis without current pathological fracture; Z90.49 Acquired absence of other specified parts of digestive tract; Z95.0 Presence of cardiac pacemaker; Z90.710 Acquired absence of both cervix and uterus; Z98.890 Other specified postprocedural states; Z88.0 Allergy status to penicillin; Z88.8 Allergy status to other drugs, medicaments and biological substances; Z79.899 Other long term (current) drug therapy; Z87.891 Personal history of nicotine dependence; Z82.49 Family history of ischemic heart disease and other diseases of the circulatory system ==

== ENCOUNTER → 2020-12-05 | Outpatient (CLI) | payer OTHER, MEDICARE | LOC: RAD 14:27 | PROVIDERS: ATTEND Nurse Practitioner | DX: M20.12 Hallux valgus (acquired), left foot (principal); M79.89 Other specified soft tissue disorders ==

== ENCOUNTER → 2020-12-14 | Outpatient (CLI) | payer OTHER, MEDICARE | LOC: SJCVC 13:10 | PROVIDERS: ATTEND Internal Medicine Cardiovascular Disease | DX: I48.0 Paroxysmal atrial fibrillation (principal); I49.5 Sick sinus syndrome; E78.00 Pure hypercholesterolemia, unspecified; I10 Essential (primary) hypertension; D68.59 Other primary thrombophilia; R42 Dizziness and giddiness; E78.5 Hyperlipidemia, unspecified; M81.0 Age-related osteoporosis without current pathological fracture; Z95.0 Presence of cardiac pacemaker; Z90.710 Acquired absence of both cervix and uterus; Z90.49 Acquired absence of other specified parts of digestive tract; Z88.5 Allergy status to narcotic agent; Z88.8 Allergy status to other drugs, medicaments and biological substances; Z88.0 Allergy status to penicillin; Z79.899 Other long term (current) drug therapy; Z87.891 Personal history of nicotine dependence; Z82.49 Family history of ischemic heart disease and other diseases of the circulatory system ==

== ENCOUNTER → 2021-02-23 | Outpatient (CLI) | payer OTHER, MEDICARE | LOC: BC 10:11 | PROVIDERS: ATTEND Nurse Practitioner | DX: Z12.31 Encounter for screening mammogram for malignant neoplasm of breast (principal) ==

== ENCOUNTER → 2021-07-24 | Outpatient (CLI) | payer OTHER, MEDICARE | LOC: SJCVC 12:38 | PROVIDERS: ATTEND Internal Medicine Cardiovascular Disease | DX: E78.00 Pure hypercholesterolemia, unspecified (principal); I49.5 Sick sinus syndrome; I48.0 Paroxysmal atrial fibrillation; Z95.0 Presence of cardiac pacemaker; I10 Essential (primary) hypertension; M81.0 Age-related osteoporosis without current pathological fracture; R01.1 Cardiac murmur, unspecified; Z79.899 Other long term (current) drug therapy; F17.210 Nicotine dependence, cigarettes, uncomplicated; Z88.0 Allergy status to penicillin; Z88.8 Allergy status to other drugs, medicaments and biological substances ==